=== PATIENT | male | born 1985 | race Caucasian/White ===

== ENCOUNTER 2024-10-24 18:35 | Inpatient (IN) | payer OTHER ==
[~2024-10-24] VITALS: Ht 190.5 cm; Wt 143.5 kg
[2024-10-24] MEDS ORDERED: NS 1,000 ML IV SCH ×2 (18:55→23:35)
[2024-10-24 19:01] LABS: BASOPHILS ABSOLUTE AUTO 0.08 K/mm3 (0.00-0.23); BASOPHILS PERCENT AUTO 1 % (0-2); EOSINOPHILS ABSOLUTE AUTO 0.42 K/mm3 (0.00-0.68); EOSINOPHILS PERCENT AUTO 3 % (0-6); Hematocrit 48.4 % (37.0-53.0); Hemoglobin 17.1 g/dL (13.5-17.5); IMMATURE GRAN PERCENT AUTO 1 % (0-1); LYMPHOCYTES ABSOLUTE AUTO 2.49 K/mm3 (0.84-5.20); LYMPHOCYTES PERCENT AUTO 18 % (21-46); MONOCYTES ABSOLUTE AUTO 1.14 K/mm3 (0.16-1.47); MONOCYTES PERCENT AUTO 8 % (4-13); Mean Corpuscular HGB 30.7 pg (26.0-34.0); Mean Corpuscular HGB Conc 35.3 g/dL (31.5-36.5); Mean Corpuscular Volume 87 fL (80-100); Mean Platelet Volume 9.8 fL (9.1-12.4); NEUTROPHILS ABSOLUTE AUTO 9.39 K/mm3 (1.96-9.15); NEUTROPHILS PERCENT AUTO 69 % (41-73); Platelet Count 220 K/mm3 (150-400); RDW Coefficient Variation 11.9 % (11.7-14.2); RDW Standard Deviation 38.3 fL (35.1-46.3); Red Blood Cell Count 5.57 M/mm3 (4.30-5.90); White Blood Cell Count 13.62 K/mm3 (4.00-11.30)
[2024-10-24 19:30] LABS: Albumin, Blood 3.6 g/dL (3.4-5.0); Albumin/Globulin Ratio 0.9 (0.8-1.8); Bilirubin, Total 0.7 mg/dL (0.1-1.0); Bun/Creatinine Ratio 10.1 (12.0-20.0); Calcium, Blood 8.9 mg/dL (8.5-10.1); Globulin, Blood 3.9 g/dL (2.2-4.0); Potassium, Blood 4.1 mmol/L (3.5-5.5); Total Protein, Blood 7.5 g/dL (6.4-8.2)
[2024-10-24 19:34] LABS: Free Thyroxine 1.16 ng/dL (0.70-1.60); Magnesium, Blood 2.1 mg/dL (1.6-2.4)
[2024-10-24 19:35] LABS: Thyroid Stimulating Hormone 1.55 uIU/mL (0.360-4.800)
[2024-10-24 19:59] LABS: U Amphetamine Screen Not Detected; U Barbituate Screen Not Detected; U Benzodiazapine Screen Not Detected; U Buprenorphine Screen Not Detected; U Cannabinoids Screen Not Detected; U Cocaine Screen Not Detected; U Methadone Screen Not Detected; U Methamphetamine Screen Not Detected; U Opiates Screen Not Detected; U Oxycodone Screen Not Detected; U Phencyclidine Screen Not Detected
[2024-10-24] MEDS ORDERED: Dose Adjust by Pharmacy XX STA (22:27)
[2024-10-24] MEDS ORDERED: Heparin Sodium 5000 Units/ML 1ML MDV IV ONE (22:30)
[2024-10-24] MEDS ORDERED: Heparin Sodium,Porcine/0.5 NS 500 ML IV SCH (22:30)
[2024-10-24 22:44] LABS: Anti-Xa UFH, PHA Monitoring <0.10 IU/mL; International Normalized Ratio 1.03
[2024-10-24 23:20] VITALS: BP 129/100
[2024-10-24 23:30] VITALS: BP 102/75
[2024-10-24] MEDS ORDERED: FLU VACC TS2024-25(6MOS UP)/PF 45 MCG/0.5 ML SYRINGE IM ONE (23:35)
[2024-10-24] MEDS ORDERED: Ondansetron HCl 2 MG / ML 2ML Vial IV PRN (23:35)
[2024-10-25] VITALS (15 sets, daily range): BP systolic 128–165; BP diastolic 76–102
--- NOTE | 2024-10-25 00:41 | NUR ---
ARRIVAL TO PCU NOTE RECEIVED REPORT FROM BUSINESS ANALYTICS ANALYST KANE PARNELL, PT SHORTLY ARRIVED TO PCU 5 AT 2310. TRANSFERRED FROM ER [facility] TO PCU BED INDEPENDENTLY. ACCOMPANIED BY SPOUSE ANASTACIA. A/Ox4, COOPERATIVE WITH CARE, AND ABLE TO MAKE HIS NEED KNOWN. CARDIAC, TELEMETRY SHOWS ST 100-120'S WITH SBP RANGING 100-120'S. DENIES CP, PRESSURE OR DIZZINESS. RESPIRATORY, MAINTAINS SPO2 >90% ON RA. DENIES SOB AT REST BUT DESATS AND ENDORSES SOB WITH EXERTION. /, DENIES N/V/D OR ABD PAIN. BS PRESENT IN ALL QUADRANTS. ABLE TO AMBULATE TO BATHROOM, VOIDING CLEAR YELLOW URINE. DENIES ANY PAIN AT THIS TIME. SKIN OVERALL C/D/I. HEPARIN gTT STARTED IN ER AND INFUSING ORDERED PER EMAR. 2xPIV NOTED. WILL CONTINUE TO PROCESS MD ORDERS. TOM AMEZCUA UPON ARRIVAL TO PCU
[2024-10-25 05:20] LABS: BASOPHILS ABSOLUTE AUTO 0.09 K/mm3 (0.00-0.23); BASOPHILS PERCENT AUTO 1 % (0-2); EOSINOPHILS ABSOLUTE AUTO 0.82 K/mm3 (0.00-0.68); EOSINOPHILS PERCENT AUTO 5 % (0-6); Hematocrit 45.3 % (37.0-53.0); Hemoglobin 16.2 g/dL (13.5-17.5); IMMATURE GRAN PERCENT AUTO 1 % (0-1); LYMPHOCYTES ABSOLUTE AUTO 4.76 K/mm3 (0.84-5.20); LYMPHOCYTES PERCENT AUTO 31 % (21-46); MONOCYTES ABSOLUTE AUTO 1.41 K/mm3 (0.16-1.47); MONOCYTES PERCENT AUTO 9 % (4-13); Mean Corpuscular HGB 31.4 pg (26.0-34.0); Mean Corpuscular HGB Conc 35.8 g/dL (31.5-36.5); Mean Corpuscular Volume 88 fL (80-100); Mean Platelet Volume 9.7 fL (9.1-12.4); NEUTROPHILS ABSOLUTE AUTO 8.11 K/mm3 (1.96-9.15); NEUTROPHILS PERCENT AUTO 53 % (41-73); Platelet Count 216 K/mm3 (150-400); RDW Coefficient Variation 12.1 % (11.7-14.2); RDW Standard Deviation 39.4 fL (35.1-46.3); Red Blood Cell Count 5.16 M/mm3 (4.30-5.90); White Blood Cell Count 15.29 K/mm3 (4.00-11.30)
[2024-10-25 05:44] LABS: Albumin, Blood 3.4 g/dL (3.4-5.0); Albumin/Globulin Ratio 0.9 (0.8-1.8); Bilirubin, Total 0.8 mg/dL (0.1-1.0); Bun/Creatinine Ratio 12.8 (12.0-20.0); Calcium, Blood 8.6 mg/dL (8.5-10.1); Creatinine, Blood 0.94 mg/dL (0.60-1.20); Globulin, Blood 3.6 g/dL (2.2-4.0); Potassium, Blood 3.9 mmol/L (3.5-5.5)
--- NOTE | 2024-10-25 05:47 | NUR ---
SHIFT SUMMARY NO ACUTE CHANGES SINCE ARRIVAL TO PCU NOTE. SEE NOTE FOR DETAILS. HEPARIN gtt AND NS INFUSING ORDERED PER EMAR. HAD TO PLACE PT ON 2L NC WHEN ASLEEP TO MAINTAIN SPO2 >90%. NO NEW ORDERS AT THIS TIME WILL REPORT TO ONCOMING RN. GOLDIE, TOM OF THIS NOTE.
[2024-10-25] MEDS ORDERED: Clarify Drug Order XX ONE ×2 (06:20→11:50)
[2024-10-25] MEDS ORDERED: Heparin Sodium 1000 Units/ML 10ML MDV ONE ×2 (12:52→14:05)
[2024-10-25] MEDS ORDERED: NS 250 ML IV ONE (12:52)
[2024-10-25] MEDS ORDERED: NS 2,000 ML IV ONE (12:53)
[2024-10-25] MEDS ORDERED: Nitroglycerin 2 MG/20 ML BTL ONE (13:03)
[2024-10-25] MEDS ORDERED: FentaNYL Citrate 50 MCG/ML 2 ML Injection ONE ×2 (13:27→14:37)
[2024-10-25] MEDS ORDERED: Midazolam HCl 1MG / ML 2ML Vial ONE ×2 (13:27→14:37)
[2024-10-25] MEDS ORDERED: NS 1,000 ML IV ONE (14:05)
[2024-10-25] MEDS ORDERED: HydrALAZINE HCl 20 MG / ML 1ML Vial ONE (14:27)
--- NOTE | 2024-10-25 15:54 | NUR ---
UPDATE: PT ARRIVED BACK TO ROOM FROM THROMBECTOMY AT APPROX 1548. PT ARRIVES A&OX4. ON RA AND MAINTAINING O2 SATS >90%. PT HAS A SLIP KNOT DEVICE TO R GROIN. PT TALKING TO THIS RN AND DENIES ANY COMPLAINS OF CP, PRESSURE, TIGHTNESS OR SOB. VSS. POST OP VITALS STARTED. DENIES ANY FURTHER NEEDS AT THIS TIME. CALL LIGHT IN REACH. WILL CONTINUE TO CARE FOR PT TILL END OF SHIFT.
--- NOTE | 2024-10-25 16:37 | NUR ---
Pt. is awake in bed and welcomes my visit. Pt. is a younger man and is pleasant. Facilitated a life review and considered matters of work, opal, and health. Pt. displayed evidence of a compliant attitude, and vrbalized wanting to commit to a healthy regimine moving forward. Prayed with the Pt. Pt. verbalized gratitude for the spiritual care visit and welcomed this supervisor poultry processing to return.
--- NOTE | 2024-10-25 19:26 | NUR ---
SHIFT SUMMARY: PT IS A&OX4. FOLLOWS COMMANDS AND MAKES NEEDS KNOWN TO STAFF. PT REMAINED FREE OF ANY CP DURING SHIFT. PT WENT FOR A THROMBECTOMY THIS AFTERNOON. SEE PREVOUS NOTE FOR AFTER ARRIVA DETAILS. PT HAS DENIED ANY NEW COMPLAINTS SINCE ARRIVAL. PT LAYED FLAT FOR 2 HOURS AND IS NOW SITTING UP IN BED PER PROVIDER ORDERS. SLIP KNOT DEVICE REMAINS WITH NO BLEEDING, SWELLING OR HEMATOMA. PT ON RA. NO OTHER SIGNIFICANT EVENTS HAPPENED DURING THIS SHIFT. HEPARIN RESTARTED PER PROVIDER ORDERS. REPORT TO LUBA WILSON TO ASSUME CARE OF PT.
--- NOTE | 2024-10-25 22:39 | NUR ---
ASSUMPTION OF CARE THIS RN ASSUMED CARE OF PATIENT AT 1900. PT A&O X4. ABLE TO MAKE NEEDS KNOWN. ON RA WITH SPO2 92-93%. PT REPORTS DYSPNEA WITH EXERTION. THROMBECTOMY DONE DURING DAYSHIFT. SITE RECOVERED. PURSE STRING CLOSURE AT RT FEMORAL SITE. SITE SOFT/NONTENDER WITH DRESSING C/D/I. PPP. PT DENIES CHEST PAIN/PRESSURE. DENIES LEG PAIN. ST ON TELE WITH HR 100-110'S. BP MILDLY ELEVATED WITH SBP 130-140. RESUMED HEP GTT PER MD ORDER. BED IN LOWEST POSITION AND CALL LIGHT WITHIN REACH.
[2024-10-26 00:28] VITALS: BP 126/71
[2024-10-26 02:31] LABS: BASOPHILS ABSOLUTE AUTO 0.09 K/mm3 (0.00-0.23); BASOPHILS PERCENT AUTO 1 % (0-2); EOSINOPHILS ABSOLUTE AUTO 0.92 K/mm3 (0.00-0.68); EOSINOPHILS PERCENT AUTO 6 % (0-6); Hematocrit 43.5 % (37.0-53.0); Hemoglobin 15.1 g/dL (13.5-17.5); IMMATURE GRAN ABSOLUTE AUTO 0.12 K/mm3 (0.00-0.10); IMMATURE GRAN PERCENT AUTO 1 % (0-1); LYMPHOCYTES ABSOLUTE AUTO 3.47 K/mm3 (0.84-5.20); LYMPHOCYTES PERCENT AUTO 23 % (21-46); MONOCYTES ABSOLUTE AUTO 1.42 K/mm3 (0.16-1.47); MONOCYTES PERCENT AUTO 10 % (4-13); Mean Corpuscular HGB 30.6 pg (26.0-34.0); Mean Corpuscular HGB Conc 34.7 g/dL (31.5-36.5); Mean Corpuscular Volume 88 fL (80-100); Mean Platelet Volume 10.1 fL (9.1-12.4); NEUTROPHILS ABSOLUTE AUTO 8.97 K/mm3 (1.96-9.15); NEUTROPHILS PERCENT AUTO 60 % (41-73); Platelet Count 211 K/mm3 (150-400); RDW Coefficient Variation 12.1 % (11.7-14.2); RDW Standard Deviation 39.2 fL (35.1-46.3); Red Blood Cell Count 4.93 M/mm3 (4.30-5.90); White Blood Cell Count 14.99 K/mm3 (4.00-11.30)
[2024-10-26 02:53] LABS: Albumin, Blood 3.2 g/dL (3.4-5.0); Anion Gap 8 mmol/L (3-11); Blood Urea Nitrogen 13 mg/dL (8-24); Bun/Creatinine Ratio 14.2 (12.0-20.0); CO2, Blood 23 mmol/L (21-32); Calcium, Blood 8.5 mg/dL (8.5-10.1); Chloride, Blood 110 mmol/L (98-108); Creatinine, Blood 0.91 mg/dL (0.60-1.20); Glomerular Filtration Rate 111 (60-); Glucose, Blood 131 mg/dL (70-99); Magnesium, Blood 2.3 mg/dL (1.6-2.4); Phosphorus, Blood 3.4 mg/dL (2.5-4.9); Sodium, Blood 137 mmol/L (136-145)
[2024-10-26] MEDS ORDERED: Dose Adjust by Pharmacy XX STA ×3 (03:01→15:53)
[2024-10-26 03:06] VITALS: BP 124/85
--- NOTE | 2024-10-26 05:03 | NUR ---
SHIFT SUMMARY SEE PREVIOUS NOTE AND ASSESSMENT. NO ACUTE CHANGES OVERNIGHT. PT DENIES CHEST PAIN/PRESSURE. ON 2L VIA NC TO MAINTAIN SPO2. BP STABLE. SR/ST ON MONITOR. HEP GTT INFUSING PER EMAR. SBA TO BATHROOM. RT FEMORAL SITE SOFT NONTENDER, DRESSING C/D/I. BED IN LOWEST POSITION AND CALL LIGHT WITHIN REACH. THIS RN WILL REPORT TO ONCOMING DAYSHIFT RN.
[2024-10-26 07:26] VITALS: BP 112/73
--- NOTE | 2024-10-26 07:26 | NUR ---
ASSUMPTION NOTE: THIS RN TO ASSUME CARE OF PATIENT. PATIENT IS SITTING UP IN BED, WATHCING TV. VITAL SIGN STABLE, PATIENT DENIED ANY CHEST PAIN/PRESSURE OR FEELING SHORT OF BREATH. PATIENT STATED HIS WILL BE BY LATER TODAY AND NOTHING IS NEEDED AT THIS TIME. HAS CALL LIGHT WITHIN REACH & BED IN LOWEST POSIITION.
--- NOTE | 2024-10-26 09:44 | NUR ---
MD AT BEDSIDE: MD TO BEDSIDE TO TALK ABOUT PLAN WITH PATIENT. PLAN MOVING FORWARD WILL BE TO TRANSITION TO ORAL ANTICOAGULATION TOMORROW FOR POTENTIAL DISCHARGE TOMROROW OR THE NEXT DAY. PATIENT ASKED ABOUT WHEN HE COULD RETURN TO WORK AND MD REFFERED TO WAIT UNTIL ONCE DISCHARGED AND FOR HIS FOLLOW UP APPOINTMENT TO GET A NOTE AND A BETTER IDEA. THIS RN WILL BRING PATIENT EDUCATION REGARDING NEW ANTI COAGUALTION MEDICATION TO BE STARTED. PATIENT DENYING AT NEEDS AT THIS TIME.
[2024-10-26 12:19] VITALS: BP 151/79
--- NOTE | 2024-10-26 14:35 | NUR ---
IR CONTACTED: THIS RN CONTACTED IR DOC IN REGARDING TO LOOKING AT HIS RIGHT GROIN ACCESS SITE. MD TO SEE PATIENT LATER TODAY.
[2024-10-26 16:33] VITALS: BP 153/105
--- NOTE | 2024-10-26 16:58 | NUR ---
SHIFT SUMMARY: PATIENT IS ALERT AND ORIENTED X4 AND COOPERATIVE WITH HIS CARE,IS ABLE TO MAKE NEEDS KNOWN AND USES CALL LIGHT APPRORPIATELY. IS ON TELE SHOWING SINUS RYTHM-SINUS TACH TOUCHING INTO 120'S WITH EXERTION TO THE BATHROOM. PATIENT IS A STAND BY ASSIST TO MANAGE LINES/CHORDS. BLOOD PRESSURE SLIGHTLY ELEVATED, PATIENT DENIED FEELING ANY SYMPTOMS. SATTING >92% ON ROOM AIR, EVEN & UNLABORED RESPIRATIONS. PATIENT AWARE OF PLAN TO TRANSITION TO ORAL ANTICOAGULATIONS TOMORROW AND ASKING FOR A COUPON ONCE HE KNOWS WHAT MEDICATION HE WILL BE ON. TO COME SEE PATIENTS GROIN SITE FROM THE THROMBECTOMY ON 10.25. SITE IS CLEAN, DRY & INTACT, IS SOFT NON TENDER & NO HEMATOMA. PATIENTS SIGNIFICANT OTHER WAS AT BEDSIDE MOST OF SHIFT. DENYING ANY NEEDS AT THIS TIME, HAS CALL LIGHT WITHIN REACH AND SITTING IN CHAIR.
--- NOTE | 2024-10-26 19:53 | NUR ---
received call from dr. oviedo to remove closure to right groin. suture removed with charge nurse,vani, at bedside. no bleeding noted. rt groin area soft with no hematoma or bruising noted. tegaderm applied. pt tolerated well
[2024-10-26 20:40] VITALS: BP 148/104
[2024-10-27 00:11] VITALS: BP 135/87
[2024-10-27 00:35] LABS: HOMOCYSTEINE, TOTAL 8 umol/L (0-15)
[2024-10-27 03:30] VITALS: BP 146/92
[2024-10-27 04:58] LABS: Hematocrit 41.7 % (37.0-53.0); Hemoglobin 14.3 g/dL (13.5-17.5); Mean Platelet Volume 9.9 fL (9.1-12.4); Platelet Count 220 K/mm3 (150-400)
[2024-10-27 05:02] LABS: B2GLYCOPROTEIN 1, IGG ANTIBODY <10 SGU (<=20); B2GLYCOPROTEIN 1, IGM ANTIBODY <10 SMU (<=20)
[2024-10-27 05:12] LABS: CARDIOLIPIN ANTIBODY IGG <10 GPL (<=14); CARDIOLIPIN ANTIBODY IGM <10 MPL (<=12)
[2024-10-27] MEDS ORDERED: Dose Adjust by Pharmacy XX STA (05:16)
--- NOTE | 2024-10-27 06:53 | NUR ---
PT SLEPT THROUGHOUT THE NIGHT, RT GROIN SITE REMAINS FREE OF BLEEDING, SWELLING. PT DENIES CHEST PAIN OR SHORTNESS OF BREATH. B/P BELOW 150, NOT S/S OF DISTRESS NOTED, CALL LIGHT IN REACH. HEPARIN CONTINUES, RATE UNCHANGED PER ORDER
[2024-10-27 08:26] VITALS: BP 153/105
[2024-10-27] MEDS ORDERED: Rivaroxaban 10 MG Tab PO ONE (10:20)
[2024-10-27 11:21] VITALS: BP 120/84
[2024-10-27] MEDS ORDERED: XARELTO20 MG PO (11:38)
--- NOTE | 2024-10-27 11:51 | NUR ---
DC-1150 PT DC IN STABLE CONDITION. PT PICKED UP BY . PT BROUGHT DOWN IN WC WITH ALL BELONGINGS.
[2024-10-27 12:04] LABS: ANTI-XA QUALITATIVE INTERP Present (Not Present); ANTICOAG MEDICATION NEUTRALIZ Hepzyme (Not Performed); DRVVT 1:1 MIX RATIO Not Performed (<=1.20); DRVVT CONFIRMATION RATIO Not Performed (<=1.20); HEXAGONAL PHOSPHOLIPID CONFIRM Not Performed s (<=7.9); NEUTRALIZED DRVVT SCREEN RATIO Not Performed (<=1.20); NEUTRALIZED PTT-LA RATIO 1.11 (<=1.20); THROMBIN TIME (TT) >150.0 s (<=19.5)
[2024-10-27 12:10] LABS: PROTEIN C FUNCTIONAL 98 % (83-168)
[2024-10-27 17:45] LABS: APC RESISTANCE 3.78 (>=2.00); FACTOR V LEIDEN BY PCR Not Done; FACV REF SPECIMEN Not Done
[2024-10-27 18:24] LABS: ANTITHROMBIN, ENZYM (ACTIVITY) 66 % (76-128)
[2024-10-27 21:20] LABS: PROTEIN S AG FREE 50 % (74-147)
[2024-11-03 09:52] LABS: PROTHROMBIN F2 G20210A VARIANT Negative; PT PCR SPECIMEN Whole Blood
== END 2024-10-27 11:51 | disposition home or self-care (01) | DRG 164 ==
LOC: ER 18:35 → PCU 18:36 → ERHOLD 18:36 → ER 18:36 → ERHOLD 18:36 → PCU 18:36 → ERHOLD 23:19 → PCU 23:19 → ERHOLD 10-25 15:09 → PCU 10-25 15:09
PROVIDERS: Emergency Medicine; Family Medicine; ADMIT Internal Medicine
PROC: X2CY3T7 Extirpation of Matter from Great Vessel using Computer-aided Mechanical Aspiration, Percutaneous Approach, New Technology Group 7 (ICD-10-PCS; principal; 2024-10-25)
PROC: B31T1ZZ Fluoroscopy of Left Pulmonary Artery using Low Osmolar Contrast (ICD-10-PCS; 2024-10-25)
PROC: B31S1ZZ Fluoroscopy of Right Pulmonary Artery using Low Osmolar Contrast (ICD-10-PCS; 2024-10-25)
PROC: 4A133B3 Monitoring of Arterial Pressure, Pulmonary, Percutaneous Approach (ICD-10-PCS; 2024-10-25)
DX: I26.99 Other pulmonary embolism without acute cor pulmonale (principal); I82.412 Acute embolism and thrombosis of left femoral vein; E66.9 Obesity, unspecified; I10 Essential (primary) hypertension; Z68.38 Body mass index [BMI] 38.0-38.9, adult
CPT/HCPCS: 36415; 37184; 71045; 71260; 75743; 76937; 80053; 80069; 81240; 83090; 83690; 83735; 83880; 84439; 84443; 84484; 85014; 85018; 85025; 85049; 85300; 85303; 85306; 85307; 85347; 85520; 85525; 85610; 85613; 85670; 85730; 86146; 86147; 93005; 93010; 93970; 96361; 96365; 96366; 96374; 96376; 99152; 99153; 99285-25; A9270; C1725; C1757; C1769; C1887; C1894; C8929; G0378; J0360; J1644; J2250; J3010; J7030; J7050; Q9957; Q9967

== ENCOUNTER → 2024-10-24 | Outpatient (CLI) | payer OTHER ==
[~2024-10-24] MED LIST: XARELTO20 MG PO
[2024-10-24 17:53] LABS: BASOPHILS ABSOLUTE AUTO 0.09 K/mm3 (0.00-0.23); BASOPHILS PERCENT AUTO 1 % (0-2); EOSINOPHILS ABSOLUTE AUTO 0.53 K/mm3 (0.00-0.68); EOSINOPHILS PERCENT AUTO 4 % (0-6); Hematocrit 48.2 % (37.0-53.0); Hemoglobin 16.8 g/dL (13.5-17.5); IMMATURE GRAN ABSOLUTE AUTO 0.09 K/mm3 (0.00-0.10); IMMATURE GRAN PERCENT AUTO 1 % (0-1); LYMPHOCYTES ABSOLUTE AUTO 2.58 K/mm3 (0.84-5.20); LYMPHOCYTES PERCENT AUTO 20 % (21-46); MONOCYTES ABSOLUTE AUTO 0.96 K/mm3 (0.16-1.47); MONOCYTES PERCENT AUTO 8 % (4-13); Mean Corpuscular HGB 30.3 pg (26.0-34.0); Mean Corpuscular HGB Conc 34.9 g/dL (31.5-36.5); Mean Corpuscular Volume 87 fL (80-100); Mean Platelet Volume 9.6 fL (9.1-12.4); NEUTROPHILS PERCENT AUTO 67 % (41-73); Platelet Count 226 K/mm3 (150-400); RDW Coefficient Variation 12.1 % (11.7-14.2); RDW Standard Deviation 38.5 fL (35.1-46.3); Red Blood Cell Count 5.55 M/mm3 (4.30-5.90); White Blood Cell Count 12.85 K/mm3 (4.00-11.30)
[2024-10-24 18:10] LABS: Albumin, Blood 3.7 g/dL (3.4-5.0); Bilirubin, Total 0.7 mg/dL (0.1-1.0); Bun/Creatinine Ratio 8.7 (12.0-20.0); Creatinine, Blood 1.04 mg/dL (0.60-1.20); Free Thyroxine 1.15 ng/dL (0.70-1.60); Globulin, Blood 3.7 g/dL (2.2-4.0); Magnesium, Blood 1.9 mg/dL (1.6-2.4); Potassium, Blood 3.9 mmol/L (3.5-5.5); Thyroid Stimulating Hormone 1.911 uIU/mL (0.360-4.800); Total Protein, Blood 7.4 g/dL (6.4-8.2)
== END ==
LOC: LAB 17:47 → LAB SHORT 17:47
PROVIDERS: Chiropractor
DX: R07.9 Chest pain, unspecified (principal); R53.83 Other fatigue
CPT/HCPCS: 80053; 83735; 84439; 84443; 84484; 85025; 85379